=== PATIENT | female | born 1990 | race Caucasian/White ===

== ENCOUNTER → 2019-01-07 12:56 | Outpatient (CLI) | payer BC, SELFPAY ==
[2019-01-08 17:39] LABS: Insulin Level Total 4.9 uIU/mL (2.6-24.9)
[2019-01-11 14:32] LABS: Testosterone, Total, LC/MS 44.5 ng/dL (10.0-55.0); Testosterone,Free 0.8 pg/mL (0.0-4.2)
== END ==
PROVIDERS: Visit Provider Nurse Practitioner
DX: L73.2 Hidradenitis suppurativa (principal)
CPT/HCPCS: 36415; 83525; 84402; 84403